=== PATIENT | male | born 1985 | race Caucasian/White ===

== ENCOUNTER 2016-08-05 08:41 | Day surgery (SDC) | payer BC ==
[~2016-08-05] VITALS: Ht 185.4 cm; Wt 96.4 kg
[~2016-08-05 08:41] MED LIST: COLCRYS0.6 MG PO; NAPROSYN 2250 MG/TAB PO; NO HOME MEDICATIONS; NORCO 325 MG-51 TAB PO; PERCOCET 5/321 UDTAB PO; PYRIDIUM 100MG100 MG PO
[2016-08-05 09:22] VITALS: BP 146/73; PULSE 65; TEMP 98.3
[2016-08-05 11:51] VITALS: BP 138/76; PULSE 69; TEMP 97.6
[2016-08-05 12:06] VITALS: BP 130/91; PULSE 81
[2016-08-05 12:21] VITALS: BP 122/84; PULSE 70
[2016-08-05] MEDS ORDERED: NORCO 325 MG-51 TAB PO (12:43)
[2016-08-05] MEDS ORDERED: PYRIDIUM 100MG100 MG PO (12:44)
== END 2016-08-05 13:00 | disposition home or self-care (01) ==
LOC: SDCO 08:41
DX: Q62.39 Other obstructive defects of renal pelvis and ureter (principal)
CPT/HCPCS: C1769; C2617; J0690; J1100; J1885; J2405; J2704; J3010; J7120; Q9967

== ENCOUNTER → 2016-08-07 | Outpatient (CLI) | payer BC | LOC: COL.PUL 14:00 | DX: D86.89 Sarcoidosis of other sites (principal) ==

== ENCOUNTER → 2016-08-27 | Outpatient (CLI) | payer BC | LOC: COL.RAD 12:52 | DX: Q62.39 Other obstructive defects of renal pelvis and ureter (principal) | CPT/HCPCS: A9562 ==

== ENCOUNTER 2016-09-10 06:08 | Day surgery (SDC) | payer BC ==
[~2016-09-10] VITALS: Ht 185.4 cm; Wt 97.1 kg
[2016-09-10 07:01] VITALS: BP 122/78; PULSE 77; TEMP 97.7
[2016-09-10 10:10] VITALS: BP 145/85; PULSE 71; TEMP 97.2
[2016-09-10] MEDS ORDERED: NORCO 325 MG-51 TAB PO (10:20)
[2016-09-10] MEDS ORDERED: PYRIDIUM 100MG100 MG PO (10:21)
[2016-09-10 10:25] VITALS: BP 142/77; PULSE 67
[2016-09-10 10:36] VITALS: TEMP 97.7
[2016-09-10 10:40] VITALS: BP 142/74; PULSE 87
[2016-09-10 10:55] VITALS: BP 158/88; PULSE 80
== END 2016-09-10 11:08 | disposition home or self-care (01) ==
LOC: SDCO 06:08
DX: Q62.11 Congenital occlusion of ureteropelvic junction (principal)
CPT/HCPCS: C1769; C1894; C2617; J0360; J0690; J1100; J1170; J1885; J2405; J2704; J3010; J7120

== ENCOUNTER → 2017-05-27 | Outpatient (CLI) | payer BC | LOC: COL.RAD 12:10 | DX: Q62.11 Congenital occlusion of ureteropelvic junction (principal) | CPT/HCPCS: A9562 ==

== ENCOUNTER → 2018-02-03 | Outpatient (CLI) | payer BC | LOC: COL.RAD 09:05 | DX: Q62.11 Congenital occlusion of ureteropelvic junction (principal) | CPT/HCPCS: A9562 ==

== ENCOUNTER 2018-02-19 21:47 | Emergency (ER) | payer BC ==
[~2018-02-19] VITALS: Ht 185.4 cm; Wt 100.0 kg
[2018-02-19 21:57] VITALS: TEMP 97.8
[2018-02-19 22:26] LABS: BASO # 0.1 (0.0-0.2); BASO % 0.5 % (0.0-2.0); EOS # 0.1 (0.0-0.7); GRAN # 6.8 (1.4-6.5); GRAN % 58.8 % (42.2-75.2); HEMATOCRIT 40.3 % (42.0-52.0); HEMOGLOBIN 14.2 g/dl (13.5-18.0); LYMPH % 25.7 % (20.0-51.0); MEAN CELL VOLUME 89 fl (80.0-100.0); MEAN CORPUSCULAR HEMOGLOBIN 31 pg (27.0-31.0); MEAN CORPUSCULAR HGB CONC 35 g/dl (33.0-37.0); MEAN PLATELET VOLUME 9.3 fl (7.4-10.4); MONO # 1.6 (0.1-0.6); MONO % 13.5 % (1.7-9.3); PLATELET COUNT 274 K/mm3 (130-400); RED BLOOD COUNT 4.55 M/mm3 (4.20-5.60)
[2018-02-19 22:39] LABS: ALANINE AMINOTRANSFERASE 32 U/L (21-72); ALKALINE PHOSPHATASE 55 U/L (50-136); ANION GAP 11 mmol/L (7-16); AST,SGOT 34 U/L (15-37); BILIRUBIN,TOTAL 0.4 mg/dL (0.0-1.0); BLOOD UREA NITROGEN 20 mg/dL (9-20); C-REACTIVE PROTEIN 0.9 mg/dL (0.0-0.9); CARBON DIOXIDE 26 mmol/L (22-30); CHLORIDE 102 mmol/L (98-107); CREATININE, serum 1.47 mg/dL (0.66-1.25); GLUCOSE 88 mg/dL (74-106); POTASSIUM 3.9 mmol/L (3.4-5.0); PROTHROMBIN TIME 11.2 SECONDS (9.7-12.8); SODIUM 139 mmol/L (137-145); TOTAL PROTEIN 7.1 gm/dL (6.4-8.2)
[2018-02-19 22:41] LABS: PARTIAL THROMBOPLASTIN TIME 33.4 SECONDS (26.0-37.0)
[2018-02-19 22:45] LABS: ERYTHROCYTE SEDIMENTATION RATE 6 mm/hr (0-15)
[2018-02-19 22:51] LABS: TROPONIN-I < 0.012 ng/mL (0.000-0.034)
[2018-02-19] MEDS ORDERED: IMURAN 50MG TAB50 MG PO (22:54)
[2018-02-19 23:25] VITALS: BP 129/87; PULSE 89
== END 2018-02-19 23:25 | disposition home or self-care (01) ==
LOC: COL.ER 21:47
PROVIDERS: Family Medicine
DX: R07.89 Other chest pain (principal)

== ENCOUNTER → 2018-02-22 | Outpatient (CLI) | payer BC ==
[~2018-02-22] MED LIST changes: +IMURAN 50MG TAB50 MG PO
[2018-02-22 09:08] LABS: BASO # 0.1 (0.0-0.2); BASO % 0.7 % (0.0-2.0); EOS # 0.1 (0.0-0.7); EOS % 1.6 % (0-4.0); GRAN # 4.1 (1.4-6.5); GRAN % 59.3 % (42.2-75.2); HEMOGLOBIN 15.2 g/dl (13.5-18.0); LYMPH # 1.7 (1.2-3.4); LYMPH % 24.2 % (20.0-51.0); MEAN CELL VOLUME 88 fl (80.0-100.0); MEAN CORPUSCULAR HEMOGLOBIN 31 pg (27.0-31.0); MEAN CORPUSCULAR HGB CONC 35 g/dl (33.0-37.0); MEAN PLATELET VOLUME 9.4 fl (7.4-10.4); MONO # 0.9 (0.1-0.6); MONO % 13.2 % (1.7-9.3); PLATELET COUNT 296 K/mm3 (130-400); RED BLOOD COUNT 4.88 M/mm3 (4.20-5.60); REDCELL DISTRIBUTION WIDTH-CV 12.9 % (11.5-14.5)
[2018-02-22 09:26] LABS: ALBUMIN 4.1 gm/dL (3.5-5.0); BILIRUBIN,TOTAL 0.4 mg/dL (0.0-1.0); CALCIUM 8.8 mg/dL (8.4-10.2); CREATININE, serum 1.3 mg/dL (0.66-1.25); POTASSIUM 3.9 mmol/L (3.4-5.0); TOTAL PROTEIN 7.3 gm/dL (6.4-8.2)
== END ==
LOC: COL.LAB 08:36
PROVIDERS: Internal Medicine Pulmonary Disease
DX: D86.0 Sarcoidosis of lung (principal)

== ENCOUNTER → 2018-07-07 | Outpatient (CLI) | payer SELFPAY ==
[2018-07-07 12:08] LABS: BASO % 0.5 % (0.0-2.0); EOS % 0.4 % (0-4.0); GRAN # 6.6 (1.4-6.5); GRAN % 77.3 % (42.2-75.2); HEMOGLOBIN 15.9 g/dl (13.5-18.0); LYMPH % 11.2 % (20.0-51.0); MEAN CELL VOLUME 90 fl (80.0-100.0); MEAN CORPUSCULAR HEMOGLOBIN 31 pg (27.0-31.0); MEAN CORPUSCULAR HGB CONC 35 g/dl (33.0-37.0); MEAN PLATELET VOLUME 9.4 fl (7.4-10.4); MONO # 0.9 (0.1-0.6); PLATELET COUNT 295 K/mm3 (130-400); REDCELL DISTRIBUTION WIDTH-CV 12.9 % (11.5-14.5)
[2018-07-07 12:22] LABS: ALBUMIN 4.1 gm/dL (3.5-5.0); BILIRUBIN,TOTAL 0.9 mg/dL (0.0-1.0); CALCIUM 9.2 mg/dL (8.4-10.2); CREATININE, serum 1.41 mg/dL (0.66-1.25); POTASSIUM 4.3 mmol/L (3.4-5.0); TOTAL PROTEIN 7.3 gm/dL (6.4-8.2)
== END ==
LOC: COL.LAB 11:25
PROVIDERS: Internal Medicine Pulmonary Disease
DX: D86.9 Sarcoidosis, unspecified (principal)

== ENCOUNTER → 2018-07-21 | Outpatient (CLI) | payer BC ==
[2018-07-21 14:04] LABS: BASO % 0.4 % (0.0-2.0); EOS % 0.2 % (0-4.0); GRAN # 7.8 (1.4-6.5); GRAN % 83.2 % (42.2-75.2); HEMATOCRIT 45.6 % (42.0-52.0); HEMOGLOBIN 15.8 g/dl (13.5-18.0); LYMPH # 1.1 (1.2-3.4); LYMPH % 11.8 % (20.0-51.0); MEAN CELL VOLUME 89 fl (80.0-100.0); MEAN CORPUSCULAR HEMOGLOBIN 31 pg (27.0-31.0); MEAN CORPUSCULAR HGB CONC 35 g/dl (33.0-37.0); MEAN PLATELET VOLUME 9.1 fl (7.4-10.4); MONO # 0.4 (0.1-0.6); MONO % 3.7 % (1.7-9.3); PLATELET COUNT 343 K/mm3 (130-400); RED BLOOD COUNT 5.12 M/mm3 (4.20-5.60)
[2018-07-21 14:17] LABS: ALBUMIN 4.4 gm/dL (3.5-5.0); BILIRUBIN,TOTAL 0.4 mg/dL (0.0-1.0); CALCIUM 9.7 mg/dL (8.4-10.2); CREATININE, serum 1.32 mg/dL (0.66-1.25); POTASSIUM 4.7 mmol/L (3.4-5.0); TOTAL PROTEIN 7.8 gm/dL (6.4-8.2)
== END ==
LOC: COL.LAB 13:14 → EDSTATUS 13:16
PROVIDERS: Internal Medicine Pulmonary Disease
DX: D86.0 Sarcoidosis of lung (principal)

== ENCOUNTER → 2018-07-25 | Outpatient (CLI) | payer BC | LOC: COL.RAD 09:45 | DX: N13.30 Unspecified hydronephrosis (principal); N19 Unspecified kidney failure ==

== ENCOUNTER → 2020-01-29 | Outpatient (CLI) | payer SELFPAY | LOC: COL.PUL 13:00 | DX: R06.02 Shortness of breath (principal) ==